=== PATIENT | male | born 1950 | race Caucasian/White ===

== ENCOUNTER 2023-01-30 09:58 | Outpatient (CLI) | payer MEDICARE | END 2023-01-30 09:59 | disposition home or self-care (01) | LOC: CSHCT 09:58 | PROVIDERS: ATTEND Internal Medicine | DX: R31.0 Gross hematuria (principal); R97.20 Elevated prostate specific antigen [PSA]; K86.2 Cyst of pancreas; N20.0 Calculus of kidney; N28.1 Cyst of kidney, acquired; K57.30 Diverticulosis of large intestine without perforation or abscess without bleeding; N40.0 Benign prostatic hyperplasia without lower urinary tract symptoms; K40.90 Unilateral inguinal hernia, without obstruction or gangrene, not specified as recurrent | CPT/HCPCS: 74178 ==

== ENCOUNTER 2023-10-22 13:59 | Outpatient (CLI) | payer MEDICARE | END 2023-10-22 14:00 | disposition home or self-care (01) | LOC: CSHULT 13:59 | PROVIDERS: ATTEND Urology | DX: N28.1 Cyst of kidney, acquired (principal); N20.0 Calculus of kidney | CPT/HCPCS: 76770 ==